=== PATIENT | female | born 1950 ===

== ENCOUNTER 2018-02-17 14:02 | Observation (INO) | payer SELFPAY ==
[2018-02-17 14:02] VITALS: BMI 35.9
[2018-02-17 14:11] VITALS: TEMP 97.9; O2SAT 97
--- NOTE | 2018-02-17 16:20 | ED PDOC ---
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 Patient describes pain as a burning sensation on the left side of her chest that is currently a 3 out of 10 now and was a 10 out of 10 yesterday. She denies that pain is worse after eating, but she does wake up with the pain sometimes. She denies leg pain, swelling or any other medical comp laints. PMD: clinic Past Medical History Reviewed: Historical Data, Nursing Documentation, Vital Signs Vital Signs: Last Vital Signs Temp 97.9 F 02/17/18 14:08 Pulse 63 02/17/18 14:53 Resp 16 02/17/18 14:08 BP 179/97 H 02/17/18 14:53 Pulse Ox 97 02/17/18 14:08 - Medical History PMH: HTN Denies: Chronic Kidney Disease - Surgical History Surgical History: - Family History Family History: States: Unknown Family Hx - Social History Current smoker - smoking cessation education provided: No Alcohol: None Drugs: Denies - Home Medications Home Medications: Ambulatory Orders Medication Instructions Recorded RX: Hydrochlorothiazide [Microzide] 12.5 mg PO DAILY 04/16/16 RX: Lisinopril [Zestril] 5 mg PO DAILY 04/16/16 Ascorbic Acid/Collagen Hydr 1 cap PO DAILY 02/17/18 [Collagen Plus Vit C Capsule] Magnesium Oxide [Magox 400] 400 mg PO DAILY 02/17/18 [place]-3 Fatty Acids [[place]-3] 1 cap PO DAILY 02/17/18 - Allergies Allergies/Adverse Reactions: Allergies Allergy/AdvReac Type Severity Reaction Status Date / Time No Known Allergies Allergy Verified 12/20/13 17:56 BONIFACIO Risk Score for UA/NSTEMI - BONIFACIO Risk Score Age > 64: YES 3 or more CAD Risk Factors: NO Known CAD (Stenosis greater than 50%): NO Aspirin use in past 7 days: NO Severe Angina: NO EKG ST changes greater than 0.5mm: NO Positive Cardiac Marker: NO BONIFACIO Score: 1 Risk %: 5% Wells Criteria for PE - Wells Criteria for Pulmonary Embolism Clinical Signs and Symptoms of DVT: No P.E is #1 Diagnosis, or Equally Likely: No Heart Rate >100: No Immobilization at least 3 days;Surgery previous 4 weeks: No Previous, objectively diagnosed PE or DVT: No Hemoptysis: No Malignancy w/treatment within 6 months, or palliative: No Total Score: 0 Review of Systems ROS Statement: Except As Marked, All Systems Reviewed And Found Negative Cardiovascular: Positive for: Chest Pain (burning) Musculoskeletal: Negative for: Leg Pain Physical Exam - Reviewed Nursing Documentation Reviewed: Yes Vital Signs Reviewed: Yes - Physical Exam Appears: Positive for: Non-toxic, No Acute Distress Head Exam: Positive for: ATRAUMATIC, NORMOCEPHALIC Skin: Positive for: Normal Color, Warm, Dry Eye Exam: Positive for: Normal appearance, EOMI, PERRL ENT: Positive for: Normal ENT Inspection Neck: Positive for: Normal, Painless ROM, Supple Cardiovascular/Chest: Positive for: Regular Rate, Rhythm. Negative for: Murmur Respiratory: Positive for: Normal Breath Sounds. Negative for: Respiratory Distress Gastrointestinal/Abdominal: Positive for: Normal Exam, Soft. Negative for: Ten derness Back: Positive for: Normal Inspection Extremity: Positive for: Normal ROM (upper and lower). Negative for: Pedal Edema, Deformity Neurologic/Psych: Positive for: Alert, Oriented (x3). Negative for: Motor/Sensory Deficits - Laboratory Results Result Diagrams: 02/17/18 16:37 02/17/18 16:37 - ECG ECG Rhythm: Positive for: Sinus Rhythm (normal) Interpretation Of ECG: LVH Rate: 65 O2 Sat by Pulse Oximetry: 97 (RA) Pulse Ox Interpretation: Normal Medical Decision Making Medical Decision Making: Time: 1547 Initial Plan: chest pain, rule out malignant cardiac arrythmia, rule out pneumonia --CMP --Troponin --CBC with differentials --Chest portable Time: 1650 CXR: FINDINGS: LUNGS: No active pulmonary disease. PLEURA: No significant pleural effusion identified, no pneumothorax apparent. CARDIOVASCULAR: No radiographic findings to suggest acute or significant cardiovascular disease. OSSEOUS STRUCTURES: No significant abnormalities. VISUALIZED UPPER ABDOMEN: Normal. OTHER FINDINGS: None. IMPRESSION: No active disease. No significant interval change compared to the prior exami [facility](s). Time: 1557 --Troponin is negative, patient will be given Aspirin and be admitted under the hospitalist. hospitalist Dr Rolon aware Scribe Attestation: Documented by Yajaira Carpio, acting as a scribe for Dl Zayas MD Provider Scribe Attestation: All medical record entries made by the Scribe were at my direction and personally dictated by me. I have reviewed the chart and agree that the record accurately reflects my personal performance of the history, physical exam, medical decision making, and the department course for this patient. I have also personally directed, reviewed, and agree with the discharge instructions and disposition. Disposition - Clinical Impression Clinical Impression: Chest pain - Patient ED Disposition Is Patient to be Admitted: Yes - Disposition Disposition Time: 15:45 Condition: STABLE
[2018-02-17 16:41] LABS: BASO # 0.1 K/uL (0.0-0.2); BASO % 0.8 % (0.0-2.0); EOS # 0.3 K/uL (0.0-0.7); HEMOGLOBIN 14.2 g/dL (12.0-16.0); LYMPH # 3.2 K/uL (1.0-4.3); LYMPH % 36.7 % (20.0-40.0); MEAN CELL VOLUME 87.3 fl (81.0-99.0); MEAN CORPUSCULAR HEMOGLOBIN 29.8 pg (27.0-31.0); MEAN CORPUSCULAR HGB CONC 34.1 g/dL (33.0-37.0); MONO # 0.6 K/uL (0.0-0.8); NEUT # 4.5 K/uL (1.8-7.0); NEUT % 52.5 % (50.0-75.0); RBC 4.76 Mil/uL (3.80-5.20); RED CELL DISTRIBUTION WIDTH 13.7 % (11.5-14.5); WHITE BLOOD COUNT 8.7 K/uL (4.8-10.8)
[2018-02-17 16:50] LABS: ALB/GLOB RATIO 1.2 (1.0-2.1); ALBUMIN 4.1 g/dL (3.5-5.0); ALT/SGPT 34 U/L (9-52); AST/SGOT 27 U/L (14-36); BLOOD UREA NITROGEN 20 mg/dl (7-17); CALCIUM 10.2 mg/dL (8.4-10.2); GFR NON-AFRICAN AMERICAN > 60
--- NOTE | 2018-02-17 16:53 | RAD ---
Date of service: 02/17/2018 HISTORY: Chest pain. COMPARISON: 04/11/2016 FINDINGS: LUNGS: No active pulmonary disease. PLEURA: No significant pleural effusion identified, no pneumothorax apparent. CARDIOVASCULAR: No radiographic findings to suggest acute or significant cardiovascular disease. OSSEOUS STRUCTURES: No significant abnormalities. VISUALIZED UPPER ABDOMEN: Normal. OTHER FINDINGS: None. IMPRESSION: No active disease. No significant interval change compared to the prior examination(s).
[2018-02-17 17:07] VITALS: BP 141/81; RESP 21
[2018-02-17 17:59] VITALS: PULSE 65
[2018-02-17] MEDS ORDERED: Aspirin 325 mg EC Tablets PO ONE (18:15)
--- NOTE | 2018-02-18 12:15 | CP.PCM.CON ---
Past Patient History - Infectious Disease Hx of Infectious Diseases: None - Past Medical History & Family History Past Medical History?: Yes - Past Social History Smoking Status: Never Smoked - CARDIAC Hx Hypertension: Yes - PULMONARY Hx Respiratory Disorders: No - NEUROLOGICAL Hx Neurological Disorder: No - HEENT Hx HEENT Problems: No - RENAL Hx Chronic Kidney Disease: No - ENDOCRINE/METABOLIC Hx Endocrine Disorders: No - HEMATOLOGICAL/ONCOLOGICAL Hx Blood Disorders: No - INTEGUMENTARY Hx Dermatological Problems: No - MUSCULOSKELETAL/RHEUMATOLOGICAL Hx Musculoskeletal Disorders: Yes Other/Comment: LIMIT JOINT MOTION RT KNEE - GASTROINTESTINAL Hx Gastrointestinal Disorders: Yes Other/Comment: HEARTBURN - GENITOURINARY/GYNECOLOGICAL Hx Genitourinary Disorders: No - PSYCHIATRIC Hx Psychophysiologic Disorder: No Hx Substance Use: No - SURGICAL HISTORY Hx Surgeries: No Hx Section: Yes (X1) Hx Dilation and Curettage: Yes (9YRS AGO) - ANESTHESIA Hx Anesthesia: No Hx Anesthesia Reactions: No Hx Malignant Hyperthermia: No Meds Allergies/Adverse Reactions: Allergies Allergy/AdvReac Type Severity Reaction Status Date / Time No Known Allergies Allergy Verified 12/20/13 17:56 Results - Vital Signs Recent Vital Signs: Last Vital Signs Temp 97.9 F 02/17/18 14:08 Pulse 65 02/17/18 17:58 Resp 21 02/17/18 17:02 BP 141/81 02/17/18 17:02 Pulse Ox 97 02/17/18 17:58 - Labs Result Diagrams: 02/17/18 16:37 02/17/18 16:37 Labs: Laboratory Results - last 24 hr 02/17/18 02/17/18 16:37 16:37 WBC 8.7 RBC 4.76 Hgb 14.2 Hct 41.6 MCV 87.3 MCH 29.8 MCHC 34.1 RDW 13.7 Plt Count 237 MPV 8.0 Neut % (Auto) 52.5 Lymph % (Auto) 36.7 [place] % (Auto) 7.0 Eos % (Auto) 3.0 Baso % (Auto) 0.8 Neut # (Auto) 4.5 Lymph # (Auto) 3.2 [place] # (Auto) 0.6 Eos # (Auto) 0.3 Baso # (Auto) 0.1 Sodium 142 Potassium 4.3 Chloride 106 Carbon Dioxide 31 H Anion Gap 9 L BUN 20 H Creatinine 0.7 Est GFR ( Amer) > 60 Est GFR (Non-Af Amer) > 60 Random Glucose 93 Calcium 10.2 Total Bilirubin 0.3 AST 27 ALT 34 Alkaline Phosphatase 70 Troponin I < 0.0120 Total Protein 7.6 Albumin 4.1 Globulin 3.5 Albumin/Globulin Ratio 1.2
== END 2018-02-17 20:06 | disposition left against medical advice (07) ==
LOC: H.ER 14:02 → H.ERHOLD 18:03
PROVIDERS: ADMIT Hospitalist; ATTEND Hospitalist
DX: R07.9 Chest pain, unspecified (principal); I10 Essential (primary) hypertension
CPT/HCPCS: 71045; 80053; 84484; 85025; 99285; G0378